=== PATIENT | female | born 1970 | race Caucasian/White ===

== ENCOUNTER 2019-03-28 13:32 | Emergency (ER) | payer MEDICAID, OTHER ==
[~2019-03-28] VITALS: Ht 157.5 cm; Wt 91.2 kg
[~2019-03-28 13:32] MED LIST: ACET-1182 PO; CIPR500T4 PO; FERR325E14 PO; OMEP20TC12 PO
[2019-03-28 13:56] VITALS: BP 155/81
[2019-03-28] MEDS ORDERED: CYCLOBENZAPRINE 10 MG TAB PO ONE (14:05)
[2019-03-28] MEDS ORDERED: ACETAMINOPHEN EXTRA STRENGTH 500 MG TAB PO ONE (14:05)
[2019-03-28 14:49] VITALS: BP 155/81
== END 2019-03-28 14:45 | disposition home or self-care (01) ==
LOC: MED 13:32
DX: S39.012A Strain of muscle, fascia and tendon of lower back, initial encounter (principal); K21.9 Gastro-esophageal reflux disease without esophagitis; D64.9 Anemia, unspecified; Z79.899 Other long term (current) drug therapy; Z88.6 Allergy status to analgesic agent; X58.XXXA Exposure to other specified factors, initial encounter; Y93.89 Activity, other specified; Y92.89 Other specified places as the place of occurrence of the external cause; Y99.8 Other external cause status
CPT/HCPCS: 81025; 99283

== ENCOUNTER 2019-04-27 21:30 | Emergency (ER) | payer MEDICAID ==
[~2019-04-27] VITALS: Ht 162.6 cm; Wt 86.2 kg
[2019-04-27 22:20] VITALS: BP 122/77
--- NOTE | 2019-04-27 22:23 | NUR ---
TO LOBBY A/W BED AMBULATORY
--- NOTE | 2019-04-27 22:39 | NUR ---
PT AMBULATED TO BED 11.
[2019-04-27] MEDS ORDERED: NACL 0.9% 1,000 ML IV ONE (22:50)
--- NOTE | 2019-04-27 23:06 | NUR ---
XRAY AT BEDSIDE.
--- NOTE | 2019-04-27 23:06 | NUR ---
PHLEB AT BEDSIDE DRAWING LABS.
--- NOTE | 2019-04-27 23:15 | NUR ---
49 YO F JAVIER SELF PRESENTS TO ED AND STATES THAT SHE WENT TO [facility]D LAST FRIDAY AND WAS TOLD THAT SHE NEEDED A BLOOD TRANSFUSION BECAUSE HER "BLOOD WAS LOW". WHEN ASKED IF SHE KNEW WHAT HER HEMOGLOBIN LEVEL WAS PT STATES "IT WAS SEVEN-SOMETHING". PT REPORTS HX OF ANEMIA AND STATES SHE REQUIRED A BLOOD TRANSFUSION LAST YEAR. PT REPORTS FEELING INCREASED FATIGUE AND LIGHT HEADEDNESS X 4 DAYS. NO KNOWN SOURCE OF ACTIVE BLEEDING. -- PT AWAKE, A/O X 4, CALM COOPERATIVE. ANSWERS QUESTIONS APPROPRIATELY. BEHAVIOR AGE APPROPRIATE. -- SKIN PINK, WARM, DRY. BREATHING EVEN, UNLABORED. -- LMP: 04/08/19 [facility]-- HTN, ANEMIA, GASTRIC ULCER Addendum: 04/28/19 [facility] 0310 [facility] ALSO STATES SHE HAS EPISODE OF SOB WITH ACTIVITY. NO SOB/ INCREASED WOB AT THIS TIME WHILE RESTING.
[2019-04-27 23:21] LABS: BASOPHILS # (AUTO) 0.1 K/uL (0.00-0.22); BASOPHILS % (AUTO) 1.1 % (0.0-2.0); EOSINOPHILS # (AUTO) 0.1 K/uL (0-0.4); EOSINOPHILS % (AUTO) 1.5 % (0.0-4.0); HEMATOCRIT 25.5 % (36-48); LYMPHOCYTES # (AUTO) 1.9 K/uL (2.5-16.5); LYMPHOCYTES % (AUTO) 19.9 % (20.5-51.1); MEAN CORPUSCULAR HEMOGLOBIN 18 pg (27-31); MEAN CORPUSCULAR HGB CONC 29 g/dL (33-37); MONOCYTES # (AUTO) 0.7 K/uL (0.8-1.0); MONOCYTES % (AUTO) 7.6 % (1.7-9.3); NEUTROPHILS # (AUTO) 6.7 K/uL (1.8-7.7); NEUTROPHILS % (AUTO) 69.9 % (42.2-75.2); PLATELET COUNT (AUTO) 359 K/uL (140-450); RED BLOOD CELL COUNT(AUTO) 4.17 MIL/uL (4.20-5.40); WHITE BLOOD COUNT (AUTO) 9.6 K/uL (4.8-10.8)
[2019-04-27 23:35] LABS: CARBON DIOXIDE 21.6 mmol/L (21-32); CREATININE 0.7 mg/dL (0.6-1.3); POTASSIUM 3.6 mmol/L (3.5-5.1)
[2019-04-27 23:41] LABS: ALBUMIN 3.7 g/dL (3.4-5.0); TOTAL BILIRUBIN 0.3 mg/dL (0.0-1.0)
[2019-04-27 23:44] LABS: HEMOGLOBIN 7.3 g/dL (12.0-16.0); MEAN CORPUSCULAR VOLUME 61.1 fL (80-94); RED CELL DISTRIBUTION WIDTH 20.7 % (11.6-13.7)
[2019-04-27 23:46] LABS: PROTHROMBIN TIME 9.9 secs (10.8-13.4)
--- NOTE | 2019-04-28 00:24 | NUR ---
PT RESTING COMFORTABLY IN BED WITH VSS. NO COMPLAINTS AT THIS TIME. SKIN PINK, WARM, DRY. BREATHING EVEN, UNLABORED.
--- NOTE | 2019-04-28 01:35 | NUR ---
PT SLEEPING COMFORTABLY IN BED WITH VSS. AROUSABLE TO VERBAL STIMULI. SKIN PINK, WARM, DRY. BREATHING EVEN, UNLABORED.
--- NOTE | 2019-04-28 02:30 | NUR ---
SPOKE WITH JANES, LAB REGARDING ETA FOR BLOOD PRODUCTS TO BE AVAILABLE. JANES STATED "IT WON'T BE FOR A FEW HOURS BECAUSE THE BLOOD HAS TO BE SENT TO [facility] TO BE TYPED/SCREENED."
--- NOTE | 2019-04-28 02:47 | NUR ---
CONSENT FORM FOR BLOOD TRANSFUSION SIGNED. EXPLAINED TO PT THAT BLOOD PRODUCTS MUST BE SENT FROM [facility]. AWAITING [facility]'S FOR ADMINISTRATION.
--- NOTE | 2019-04-28 02:50 | NUR ---
PT REQUESTING SNACK. PUDDING PROVIDED.
--- NOTE | 2019-04-28 03:37 | NUR ---
PT SLEEPING COMFORTABLY IN BED WITH VSS. AROUSABLE TO VERBAL STIMULI. SKIN PINK, WARM, DRY. BREATHING EVEN, UNLABORED.
--- NOTE | 2019-04-28 04:25 | NUR ---
PT SLEEPING COMFORTABLY IN BED WITH VSS. AROUSABLE TO VERBAL STIMULI. SKIN PINK, WARM, DRY. BREATHING EVEN, UNLABORED.
--- NOTE | 2019-04-28 05:07 | NUR ---
AYAN FROM [facility] BLOOD WAS PICKED UP BY [facility] SECRETARY.
--- NOTE | 2019-04-28 05:54 | NUR ---
SPOKE TO STEF HERNANDEZ. STATES THAT [facility] WAS CALLED TO [facility] BLOOD TO BE TAKEN TO [facility] AT 0415. AWAITING TYPE AND CROSS.
--- NOTE | 2019-04-28 06:05 | NUR ---
PT SLEEPING COMFORTABLY IN BED WITH VSS. AROUSABLE TO VERBAL STIMULI. SKIN PINK, WARM, DRY. BREATHING EVEN, UNLABORED.
--- NOTE | 2019-04-28 07:08 | NUR ---
RECEIVED CALL FROM STEF HERNANDEZ. STATES THAT RESULTS RECEIVED FROM [facility] BUT ORDER FOR [facility] WAS NOT ORDERED CORRECTLY.
--- NOTE | 2019-04-28 07:10 | NUR ---
RECEIVED REPORT FROM DAVID YU FOR CONTINUATION OF CARE
--- NOTE | 2019-04-28 07:20 | NUR ---
PROVIDED PT WITH APPLE JUICE AND PILLOW, ORDERED PT A BREAKFAST TRAY.
--- NOTE | 2019-04-28 07:35 | NUR ---
PER LAB - PACKED CELLS ARE HERE NOW. PER DR. PETERS, WE CAN WAIT TO INFUSE UNTIL WE HAVE THE MOST RECENT H & H
--- NOTE | 2019-04-28 07:55 | NUR ---
LAB AT BEDSIDE
--- NOTE | 2019-04-28 08:07 | NUR ---
PT SITTING UP EATING BREAKFAST AT THIS TIME.
[2019-04-28 08:13] LABS: HEMATOCRIT 23.7 % (36-48)
[2019-04-28 08:21] LABS: HEMOGLOBIN 6.8 g/dL (12.0-16.0)
--- NOTE | 2019-04-28 09:12 | NUR ---
Consent signed per PATIENT PEREZ GILL & DR. CATHERINE PETERS agreeing to administration of blood. Blood has been type and crossmatched. Blood sent from blood bank. Information on unit of blood checked against patient wristband at bedside by two nurses, PEYTON BURRELL RN & VINCE MERCADO RN. All information matches. Patient or responsible green party informed of potential complications associated with blood transfusion. Informed of possible transfusion reaction symptoms. Aware of need to notify nurse at once of itching, shortness of breath, flushing, feeling of impending doom, or other symptoms not previously present. Vital signs taken within 5 minutes prior to initiation of transfusion. RN will remain with patient for first 15 minutes of transfusion at which time vital signs will be re-assessed.
--- NOTE | 2019-04-28 09:51 | NUR ---
PT IS RESTING IN BED, DENIES REACTION [id number] AT THIS TIME
--- NOTE | 2019-04-28 11:21 | NUR ---
PT ASLEEP IN BED, AROUSABLE TO VERBAL STIMULI
--- NOTE | 2019-04-28 12:15 | NUR ---
PT SITTING UP AND EATING LUNCH, DENIES ANY ADVERSE SYMPTOMS AT THIS TIME
--- NOTE | 2019-04-28 13:12 | NUR ---
BLOOD TRANSFUSION COMPLETE, CALLED LAB TO REDRAW H & H
[2019-04-28 14:17] LABS: HEMATOCRIT 26.3 % (36-48); HEMOGLOBIN 7.8 g/dL (12.0-16.0)
--- NOTE | 2019-04-28 14:45 | NUR ---
Consent signed per PEREZ GILL PT & DR. CATHERINE PETERS agreeing to administration of blood. Blood has been type and crossmatched. Blood sent from blood bank. Information on unit of blood checked against patient wristband at bedside by two nurses, PEYTON BURRELL RN & RONY MOSQUEDA RN. All information matches. Patient or responsible libertarian informed of potential complications associated with blood transfusion. Informed of possible transfusion reaction symptoms. Aware of need to notify nurse at once of itching, shortness of breath, flushing, feeling of impending doom, or other symptoms not previously present. Vital signs taken within 5 minutes prior to initiation of transfusion. RN will remain with patient for first 15 minutes of transfusion at which time vital signs will be re-assessed.
--- NOTE | 2019-04-28 14:45 | NUR ---
2ND UNIT OF PACKED CELLS STARTED. VERIFIED PT INFO W/ DAVID TODD. PT NOTIFIED TO MAKE STAFF AWARE OF ADVERSE Reactions. vss to be taken per policy.
[2019-04-28] MEDS ORDERED: ACETAMINOPHEN EXTRA STRENGTH 500 MG TAB PO ONE (15:30)
--- NOTE | 2019-04-28 15:30 | NUR ---
PROVIDED PT WITH DINNER TRAY
[2019-04-28] MEDS ORDERED: ACETAMINOPHEN EXTRA STRENGTH 500 MG TAB ONE (15:42)
--- NOTE | 2019-04-28 17:40 | NUR ---
2ND UNIT PRBC TRANSFUSION COMPLETE
[2019-04-28 18:38] VITALS: BP 122/75
== END 2019-04-28 18:39 | disposition home or self-care (01) ==
LOC: MED 21:30
DX: D64.9 Anemia, unspecified (principal); K21.9 Gastro-esophageal reflux disease without esophagitis; Z79.899 Other long term (current) drug therapy; Z88.6 Allergy status to analgesic agent
CPT/HCPCS: 36415; 80053; 85018; 85025; 85610; 85730; 86886; 86900; 86901; 86920; 99283; J7030; P9016